=== PATIENT | male | born 2000 | race Caucasian/White ===

== ENCOUNTER 2023-09-02 16:51 | Emergency (ER) | payer SELFPAY ==
--- OUTSIDE RECORDS SUMMARY | 2023-09-02 16:54 | XMS REPORT | Continuity of Care Document ---
Author Name Unknown Address [address] [place] [address] [facility] thconnect Address 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 Name Role Phone PCP, PATIENT DOES NOT HAVE A Primary Care Physic bruce Armstrong RN, Ayanna Attending Clinician Unavailable CECY HUTCHINSON Attending Clinician Unavailable Only, Ang Db Test Attending Clinician Unavailabl Cecy Leon Attending Clinician [phone] Payers Payer Name Policy Type Policy Number Effective Date Expirati on Date Source Allergies, Adverse Reactions, Alerts Allergy Name Allergy Type Status Severity Reaction(s) Onset Date Inactive Date Treating Clinician Comments Source NO KNOWN ALLERGIE S Drug Class Active [facility] Social History Social Habit Start Date Stop Date Quantity Comments Source Exposure to SARS-CoV-2 (event) 2022-04-26 00:00:00 2022-05-06 18:50:00 Not sure [facility] Sex Assigned At 2000 00:00:00 2000 00:00:00 [facility] Smoking Status Start Date Stop Date Source Tobacco smoking consumption unknown [facility] Encounters Start Date/Time End Date/Time Encounter Type Admission Type Attending Clinicians Care Facility Care Department Encounter ID Source 2022-05-07 00:00:00 2022-05-07 00:00:00 Telephone Ayanna Armstrong [facility] [id number] [facility] 2022-05-06 18:30:00 2022-05-06 18:56:05 Outpatient R CECY HUTCHINSON [facility] [id number] [facility] 2022-05-06 18:30:00 2022-05-06 18:45:00 Laboratory Only Only, Ang Db Test Cecy Hutchinson [facility] [id number] [facility]
--- NOTE | 2023-09-02 19:51 | ER ---
Nurse's Notes [facility] Pat Name: Milton Nugent Age: 22 yrs Sex: Male : 2000 Arrival Date: 09/02/2023 Time: 16:51 Bed IW2 Private MD: Diagnosis: Presentation: 09/02 17:07 Chief complaint: Patient states: Hit head on monkey bars. No LOC, had 1 episode of cm10 vomiting. Pt states that he is having light sensitivity. Coronavirus screen: Vaccine status: Patient reports receiving the 2nd dose of the covid vaccine. Client denies travel out of the [place] in the last 14 days. Ebola Screen: Patient denies travel to an Ebola-affected area in the 21 days before illness onset. No symptoms or risks identified at this time. Mechanism of Injury: resulted from. Initial Sepsis Screen: Does the patient meet any 2 criteria? No. Patient's initial sepsis screen is negative. Does the patient have a suspected source of infection? No. Patient's initial sepsis screen is negative. Risk Assessment: Do you want to hurt yourself or someone else? Patient reports no desire to harm self or others. Onset of symptoms was September 02, 2023. 17:07 Method Of Arrival: Ambulatory cm10 17:07 Acuity: HEATHER 4 cm10 Historical: - Allergies: 17:16 PENICILLINS; cm10 17:16 Amoxicillin; cm10 - Home Meds: 17:08 None [Active]; cm10 - PMHx: 17:08 None; cm10 - PSHx: 17:08 None; cm10 - Immunization history:: Adult Immunizations unknown. - Social history:: Smoking status: Reported history of juuling and/or vaping. 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 km8 19:50 General: Attempted to call patients name in the lobby. No answer. Unknown reason for kd3 elopement. . Vital Signs: 17:07 BP 130 / 90; Pulse 89; Resp 18; Temp 97.3; Pulse Ox 99% ; Weight 117.93 kg; Height 5 cm10 ft. 11 in. ; Pain 7/10; 17:07 Body Mass Index 36.26 (117.93 kg, 180.34 cm) cm10 17:07 Pain Scale: Adult cm10 [place] Coma Score: 17:07 Eye Response: spontaneous(4). Motor Response: obeys commands(6). Verbal Response: cm10 oriented(5). Total: 15. ED Course: 16:53 Patient arrived in ED. mg5 17:07 Álvaro Caldera MD is Attending Physician. sp3 17:08 Triage completed. cm10 17:09 Arm band placed on Patient placed in waiting room. cm10 17:12 Jadiel Sheets PA is PHCP. cp Administered Medications: No medications were administered Outcome: 19:51 Patient left the ED. kd3 Signatures: Jadiel Sheets PA PA cp Álvaro Caldera MD MD sp3 Millie Vee RN RN kd3 Sandy Ray RN RN cm10 Fern Urena mg5 Shital Watson RN RN km8 Corrections: (The following items were deleted from the chart) 17:08 17:08 Allergies: Aspirin; cm10 cm10 17:17 17:08 Allergies: No Known Allergies; cm10 cm10
--- NOTE | 2023-09-02 19:51 | EDPHYS ---
Physician Documentation [facility] Name: Milton Nugent Age: 22 yrs Sex: Male : 2000 Arrival Date: 09/02/2023 Time: 16:51 Bed IW2 Private MD: ED Physician Álvaro Caldera HPI: 09/02 17:07 This 22 yrs old Male presents to ER via Unassigned with complaints of Head sp3 Injury-Adult, Vomiting. 17:07 22-year-old male with no past medical history presents to the ED with chief complaint sp3 headache, scalp hematoma and vomiting x 1 after hitting the top of his head on a park playground while playing with his daughter. is also present and states that he was dazed but did not have loss of consciousness. He complains of no other pain including no cervical spine pain, shoulder pain, pain on any axial load type pattern, loss of memory, speech dysarthria, weakness of any kind, sensory loss of any kind, double vision or visual change, any other signs or symptoms on ROS at this time. No prior head injury noted. Patient takes no medications and has allergies only to penicillin.. Historical: - Allergies: 17:16 PENICILLINS; cm10 17:16 Amoxicillin; cm10 - Home Meds: 17:08 None [Active]; cm10 - PMHx: 17:08 None; cm10 - PSHx: 17:08 None; cm10 - Immunization history:: Adult Immunizations unknown. - Social history:: Smoking status: Reported history of juuling and/or vaping. ROS: 17:08 Constitutional: Negative for fever, chills, and weight loss, Eyes: Negative for injury, sp3 pain, redness, and discharge, ENT: Negative for injury, pain, and discharge, Neck: Negative for injury, pain, and swelling, Cardiovascular: Negative for chest pain, palpitations, and edema, Respiratory: Negative for shortness of breath, cough, wheezing, and pleuritic chest pain, Back: Negative for injury and pain, MS/Extremity: Negative for injury and deformity, Skin: Negative for injury, rash, and discoloration, Psych: Negative for depression, anxiety, suicide ideation, homicidal ideation, and hallucinations, Allergy/Immunology: Negative for hives, rash, and allergies, Endocrine: Negative for neck swelling, polydipsia, polyuria, polyphagia, and marked weight changes, Hematologic/Lymphatic: Negative for swollen nodes, abnormal bleeding, and unusual bruising, 17:08 All other systems are negative, Exam: 17:08 Constitutional: This is a well developed, well nourished patient who is awake, alert, sp3 and in no acute distress. Eyes: Pupils equal round and reactive to light, extra-ocular motions intact. Lids and lashes normal. Conjunctiva and sclera are non-icteric and not injected. Cornea within normal limits. Periorbital areas with no swelling, redness, or edema. ENT: Nares patent. No nasal discharge, no septal abnormalities noted. External auditory canals are clear. Oropharynx with no redness, swelling, or masses, exudates, or evidence of obstruction, uvula midline. Mucous membranes moist. Neck: Trachea midline, no thyromegaly or masses palpated, and no cervical lymphadenopathy. Supple, full range of motion without nuchal rigidity, or vertebral point tenderness. No Meningismus. Chest/axilla: Normal chest wall appearance and motion. Nontender with no deformity. No lesions are appreciated. Cardiovascular: Regular rate and rhythm with a normal S1 and S2. No gallops, murmurs, or rubs. Normal PMI, no JVD. No pulse deficits. Respiratory: Lungs have equal breath sounds bilaterally, clear to auscultation and percussion. No rales, rhonchi or wheezes noted. No increased work of breathing, no retractions or nasal flaring. Abdomen/GI: Soft, non-tender, with normal bowel sounds. No distension or tympany. No guarding or rebound. No evidence of tenderness throughout. Back: No spinal tenderness. No costovertebral tenderness. Full range of motion. Skin: Warm, dry with normal turgor. Normal color with no rashes, no lesions, and no evidence of cellulitis. MS/ Extremity: Pulses equal, no cyanosis. Neurovascular intact. Full, normal range of motion. Neuro: Awake and alert, GCS 15, oriented to person, place, time, and situation. Cranial nerves II-XII grossly intact. Motor strength 5/5 in all extremities. Sensory grossly intact. Cerebellar exam normal. Normal gait. Psych: Awake, alert, with orientation to person, place and time. Behavior, mood, and affect are within normal limits. 17:08 Head/face: Mild scalp hematoma on the right temporoparietal area. Vital Signs: 17:07 BP 130 / 90; Pulse 89; Resp 18; Temp 97.3; Pulse Ox 99% ; Weight 117.93 kg; Height 5 cm10 ft. 11 in. ; Pain 7/10; 17:07 Body Mass Index 36.26 (117.93 kg, 180.34 cm) cm10 17:07 Pain Scale: Adult cm10 [place] Coma Score: 17:07 Eye Response: spontaneous(4). Motor Response: obeys commands(6). Verbal Response: cm10 oriented(5). Total: 15. MDM: 17:09 Data reviewed: vital signs, nurses notes, radiologic studies. ED course: 22-year-old sp3 male with likely close an injury/concussion type presentation. I am not highly suspicious for intracranial hemorrhage or skull fracture. CT scan of the head is pending. CT scan of the cervical spine is not indicated Nexus criteria negative. I do not believe he has a distracting injury. Will also administer ice pack, and give ondansetron and ibuprofen p.o. for symptomatic control. I explained all of this to the patient they understand that if the CT scan is negative, they will be safely discharged home.. 17:11 Patient medically screened. sp3 12 17:10 Order name: Ice pack sp3 Administered Medications: No medications were administered Disposition Summary: 09/02/23 19:51 Eloped Notes: Disposition: after being seen by provider kd3 Reason: unknown kd3 Signatures: Dispatcher [employer] EDÁlvaro Lora MD MD sp3 Millie Vee RN RN kd3 Sandy Ray RN RN cm10 Corrections: (The following items were deleted from the chart) 17:08 17:08 Allergies: Aspirin; cm10 cm10 17:17 17:08 Allergies: No Known Allergies; cm10 cm10
[2023-09-02 20:21] VITALS: BP 130/90; TEMP 97.3; O2SAT 99
== END 2023-09-02 19:51 | disposition left against medical advice (07) ==
LOC: ER 16:51
DX: S00.03XA Contusion of scalp, initial encounter (principal); R11.10 Vomiting, unspecified
CPT/HCPCS: 99281